=== PATIENT | male | born 1950 | race Caucasian/White ===

== ENCOUNTER 2018-06-11 16:56 | Emergency (ER) | payer MEDICARE, MEDICAID ==
[~2018-06-11] VITALS: Ht 167.6 cm; Wt 69.9 kg
[2018-06-11] MEDS ORDERED: SODIUM CHLORIDE 0.9% 1,000 ML IV ONE (20:21)
[2018-06-11] MEDS ORDERED: MORPHINE SULFATE 4 MG/ML CPJ (NOT FOR IM USE) IV STA (20:21)
[2018-06-11] MEDS ORDERED: ONDANSETRON HCL 4MG/2ML INJ IV STA (20:21)
[2018-06-11] MEDS ORDERED: HYDROCODONE/ACETAMINOPHEN 5/325MG TABLET PO ONE (20:45)
[2018-06-11] MEDS ORDERED: KETOROLAC 15MG/ML VIAL IV ONE (20:45)
[2018-06-11 21:52] LABS: BASOPHILS % 0.5 % (0.0-2.0); EOSINOPHILS % 0.8 % (0.0-5.0); HEMATOCRIT. 40.5 % (42.0-52.0); HEMOGLOBIN. 13.4 g/dL (14.0-18.0); LYMPHOCYTES % 25.6 % (20.0-50.0); MEAN CORPUSCULAR HEMOGLOBIN 28.7 pg (28.0-32.0); MEAN PLATELET VOLUME 10.5 fl (7.4-10.4); MONOCYTES % 6.7 % (2.0-8.0); NEUTROPHILS % 66.4 % (40.0-76.0); PLATELET 207 x1000/uL (130-400); RED BLOOD CELL COUNT 4.66 mill/uL (4.7-6.1); RED CELL DISTRIBUTION WIDTH 14.1 % (11.6-14.6)
[2018-06-11 21:56] LABS: CHLORIDE 110 mEq/L (98-107)
[2018-06-11 22:05] LABS: CREATINE KINASE 223 IU/L (39-308)
[2018-06-12 02:41] VITALS: BP 139/76
== END 2018-06-12 03:23 | disposition home or self-care (01) ==
LOC: ER 16:56
DX: R42 Dizziness and giddiness (principal); M79.662 Pain in left lower leg
CPT/HCPCS: 36415; 71045; 80053; 82550; 82962; 83880; 84484; 85025; 93005; 96361; 96374; 96375; 99284; J1885; J2405; J7030; J2270